=== PATIENT | female | born 1950 | race Caucasian/White ===

== ENCOUNTER → 2017-09-29 | Day surgery (SDC) | payer MEDICARE ==
--- NOTE | 2017-09-29 15:25 | USB ---
EXAMINATION TYPE: US breast needle core LT DATE OF EXAM: 09/29/2017 COMPARISON: NONE CLINICAL HISTORY: R92.8 ABNORMAL JASWINDER. HISTORY: New palpable abnormality at the far lateral left breast at 2:00 with history of breast cancer at age 55. No history of trauma. TECHNIQUE: Informed consent was obtained. Preprocedural timeout was performed. Maximal barrier technique was utilized. The skin overlying a suitable path to the patient's 6 x 6 x 5 mm solid mass at the 2:00 position was localized with ultrasound and the overlying skin prepped and draped. Ultrasound was utilized with sterile technique. 10 cc of lidocaine was used for local anesthesia. A skin cara was made with a scalpel. An 18-gauge Bard biopsy device was advanced under direct ultrasound guidance and 8 core specimens were obtained of the mass. Specimen submitted to Pathology. A coil-shaped biopsy marker was then placed in the mass. No postprocedure mammogram was performed as the abnormality was far lateral and not imaged mammographically. Following the procedure, hemostasis achieved and the patient is discharged in stable condition without complication. IMPRESSION: STATUS POST ULTRASOUND GUIDED CORE BIOPSY OF A PALPABLE FAR LATERAL 6 MM SOLID MASS AT THE 2:00 POSITION MASS PATHOLOGY IS PENDING. THIS PROCEDURE IS PERFORMED BY THE UNDERSIGNED. Pathology Results: Benign BREAST, LEFT, CORE BIOPSY: FAT NECROSIS WITH FIBROSIS/SCAR AND CHRONIC INFLAMMATION. NEGATIVE FOR MALIGNANCY. SEE NOTE. Recommendation Follow up ultrasound of the left breast in 6 months. ELPIDIOD
== END ==
LOC: RADUSWWP 12:25
PROVIDERS: ATTEND Surgery
DX: N64.1 Fat necrosis of breast (principal); N60.32 Fibrosclerosis of left breast; Z85.3 Personal history of malignant neoplasm of breast; R92.8 Other abnormal and inconclusive findings on diagnostic imaging of breast; N61.0 Mastitis without abscess; Z88.1 Allergy status to other antibiotic agents; Z88.3 Allergy status to other anti-infective agents
CPT/HCPCS: 88305; 88342; 88341; 19083; A4648

== ENCOUNTER → 2017-09-29 | Outpatient (CLI) | payer MEDICARE ==
[2017-09-29 12:29] VITALS: RESP 16; BMI 24.0
[2017-09-29 14:01] VITALS: BP 116/79; PULSE 80; TEMP 98.5
--- NOTE | 2017-09-29 14:31 | MM ---
Reason for exam: additional evaluation requested from prior study. Last mammogram was performed 1 year ago. History: Patient is postmenopausal, has history of breast cancer at age 55, and history of other cancer. Family history of breast cancer in paternal grandmother and breast cancer in 2 paternal aunts. Reductions of both breasts, 2009. Malignant US right guided mammotome of the right breast, December 11, 2005. Cancelled Left US Needle Biopsy of the left breast, December 11, 2005. Lumpectomy of the right breast, 2005. Chemotherapy, 2005. Radiation therapy, 2005. Took hormonal contraceptives for 10 years beginning at age 18. Took estrogen for 2 years beginning at age 32. Took antineoplastic for 5 years beginning at age 55. Physical Findings: Nurse Summary: There is a 0.5cm nodule in the left breast at 2 o'clock (nurse mj). MG 3D Diag Mammo W/Cad DANNIELLE XCCL view(s) were taken of the right breast. Spot compression CC view(s) were taken of the left breast. Prior study comparison: April 16, 2016, bilateral US breast BILAT. September 25, 2015, bilateral MG 3d diag mammo w/cad DANNIELLE. The breast tissue is heterogeneously dense. This may lower the sensitivity of mammography. Medial asymmetry resolves on spot compression view and appears as fibroglandular tissue. Asymmetry at site of palpable BB marker axillary on superior inferior oblique view only. These results were verbally communicated with the patient and result sheet given to the patient on 09/29/17. ASSESSMENT: Incomplete: need additional imaging evaluation, BI-RAD 0 RECOMMENDATION: Ultrasound of the left breast. (at palpable abnormality)
--- NOTE | 2017-09-29 14:37 | USB ---
Reason for exam: additional evaluation requested from abnormal screening. History: Patient is postmenopausal, has history of breast cancer at age 55, and history of other cancer. Family history of breast cancer in paternal grandmother and breast cancer in 2 paternal aunts. Reductions of both breasts, 2009. Malignant US right guided mammotome of the right breast, December 11, 2005. Cancelled Left US Needle Biopsy of the left breast, December 11, 2005. Lumpectomy of the right breast, 2005. Chemotherapy, 2005. Radiation therapy, 2005. Took hormonal contraceptives for 10 years beginning at age 18. Took estrogen for 2 years beginning at age 32. Took antineoplastic for 5 years beginning at age 55. US Breast Limited LT Left breast ultrasound demonstrates a 6 x 6 x5mm solid lesion at 2 o'clock mildly hypoechoic with some internal vascularity. These results were verbally communicated with the patient and result sheet given to the patient on 09/29/17. ASSESSMENT: Suspicious, BI-RAD 4 RECOMMENDATION: Ultrasound core biopsy of the left breast. Called Dr. Crawley with mammographic findings and has scheduled an appointment for the patient for10/04/17 at 3:[address] Galdamez. PRELIMINARY REPORT CALLED AND FAXED TO DR. GALDAMEZ ON 09/29/17.
== END | disposition home or self-care (01) ==
LOC: RADMAMWWP 10:21
PROVIDERS: ATTEND Internal Medicine
DX: R92.8 Other abnormal and inconclusive findings on diagnostic imaging of breast (principal); C50.819 Malignant neoplasm of overlapping sites of unspecified female breast
CPT/HCPCS: 76642; G0204; G0279; J2001

== ENCOUNTER → 2018-06-03 | Outpatient (CLI) | payer MEDICARE ==
--- NOTE | 2018-06-03 11:16 | ECHOS ---
STRESS ECHOCARDIOGRAM DATE OF SERVICE: 06/03/2018 INDICATIONS: Abnormal EKG. MEDICATIONS: BASELINE HEART RATE: 70 BASELINE BLOOD PRESSURE: 112/76 MAXIMUM HEART RATE: 137 MAXIMUM BLOOD PRESSURE: 179/74 85% MPHR: 128 100% MPHR: 150 METS: 10 MAXIMUM STAGE REACHED: III TOTAL EXERCISE TIME: 9 minutes CLINICAL INFORMATION: Baseline EKG shows sinus rhythm, normal axis, normal intervals. Patient exercised on Mendez protocol for a total of 9 minutes achieving 10 METs, 91% of predicted maximal heart rate without chest pain or diagnostic ST-segment depression. Baseline echo shows normal left ventricular size, wall motion and systolic function. Postexercise, there is normal hyperdynamic response of all segments of myocardium noted. CONCLUSIONS: 1. Good exercise tolerance. 2. Negative stress test by EKG criteria. 3. Negative stress echo. MMODL / IJN: [id number] /
== END | disposition home or self-care (01) ==
LOC: RADNMMAIN 09:37
PROVIDERS: ATTEND Internal Medicine
DX: R94.31 Abnormal electrocardiogram [ECG] [EKG] (principal)
CPT/HCPCS: 93351

== ENCOUNTER → 2018-06-30 | Outpatient (CLI) | payer MEDICARE ==
--- NOTE | 2018-07-01 10:52 | BD ---
EXAMINATION TYPE: Axial Bone Density DATE OF EXAM: 06/30/2018 COMPARISON: NONE CLINICAL HISTORY: Height: 5 FT 2 1/2 IN Weight: 144 FRAX RISK QUESTIONS: RISK FACTORS HISTORY OF: Active: YES Postmenopausal woman: AGE 51 PT HAD LUMBAR SURG 3 YEARS AGO MEDICATIONS: Additional Medications: LISINOPRIL, HYDROCHLOROTHIAZIDE, ATORVASTATIN Additional History: EXAM MEASUREMENTS: Bone mineral densitometry was performed using the [employer] System. Bone mineral density as measured about the Lumbar spine is: ----- L1-L4(G/cm2): 1.490 T Score Values are as follows: ----- L2: 1.5 ----- L3: 4.2 ----- L4: 3.1 ----- L1-L4: 2.6 DIS REGUARD LUMBAR IMAGES PT HAD PREV SURG DONE IN ERROR Bone mineral density about the R hip (g/cm2): 1.001 Bone mineral density about the L hip (g/cm2): 0.987 T Score values are as follows: -----R Neck: -0.3 -----L Neck: -0.4 -----R Total: -0.3 -----L Total: 0.1 Bone mineral density has: INCREASED 2.9 % since study of: 2016 Bone mineral density about the R Wrist (g/cm2): 0.617 T Score values are as follows: -----Dist. R+U: -1.1 -----Prox. R+U: -0.8 -----Radius total: -0.9 FIRST TIME FOR WRIST BECAUSE OF LUMBAR SURG IMPRESSION: Osteopenia about the distal radius and ulna. NOTE: T-SCORE=SD OF THE YOUNG ADULT MEAN.
== END | disposition home or self-care (01) ==
LOC: RADBDWWP 14:35
PROVIDERS: ATTEND Internal Medicine
DX: M81.0 Age-related osteoporosis without current pathological fracture (principal); M85.839 Other specified disorders of bone density and structure, unspecified forearm
CPT/HCPCS: 77080

== ENCOUNTER → 2018-08-30 | Outpatient (CLI) | payer MEDICARE ==
--- NOTE | 2018-08-31 08:59 | MM ---
Reason for exam: additional evaluation requested from prior study. Last mammogram was performed 11 months ago. History: Patient is postmenopausal, has history of breast cancer at age 55, and history of other cancer. Family history of breast cancer in paternal grandmother and breast cancer in 2 paternal aunts. Benign US breast needle core LT of the left breast, September 29, 2017. Reductions of both breasts, 2009. Malignant US right guided mammotome of the right breast, December 11, 2005. Cancelled Left US Needle Biopsy of the left breast, December 11, 2005. Lumpectomy of the right breast, 2005. Chemotherapy, 2005. Radiation therapy, 2005. Took hormonal contraceptives for 10 years beginning at age 18. Took estrogen for 2 years beginning at age 32. Took antineoplastic for 5 years beginning at age 55. Physical Findings: Nurse did not find any significant physical abnormalities on exam. MG 3D Diag Mammo W/Cad DANNIELLE Bilateral CC and MLO view(s) were taken. Prior study comparison: September 29, 2017, bilateral MG 3d diag mammo w/cad DANNIELLE. September 28, 2016, bilateral MG 3d diag mammo w/cad DANNIELLE. The breast tissue is heterogeneously dense. This may lower the sensitivity of mammography. Benign appearing bilateral calcifications. Post therapy change on the right breast. These results were verbally communicated with the patient and result sheet given to the patient on 08/30/18. ASSESSMENT: Benign, BI-RAD 2 RECOMMENDATION: Routine screening mammogram of both breasts in 1 year.
== END | disposition home or self-care (01) ==
LOC: RADMAMWWP 14:47
PROVIDERS: ATTEND Internal Medicine
DX: Z08 Encounter for follow-up examination after completed treatment for malignant neoplasm (principal); Z85.3 Personal history of malignant neoplasm of breast
CPT/HCPCS: 77066; G0279; 77062

== ENCOUNTER → 2019-09-01 | Outpatient (CLI) | payer MEDICARE ==
--- NOTE | 2019-09-01 14:29 | MM ---
Reason for exam: additional evaluation requested from prior study. Last mammogram was performed 1 year ago. History: Patient is postmenopausal, has history of breast cancer at age 55, and history of other cancer. Family history of breast cancer in paternal grandmother and breast cancer in 2 paternal aunts. Benign US breast needle core LT of the left breast, September 29, 2017. Reductions of both breasts, 2009. Malignant US right guided mammotome of the right breast, December 11, 2005. Cancelled Left US Needle Biopsy of the left breast, December 11, 2005. Lumpectomy of the right breast, 2005. Chemotherapy, 2005. Radiation therapy, 2005. Took hormonal contraceptives for 10 years beginning at age 18. Took estrogen for 2 years beginning at age 32. Took antineoplastic for 5 years beginning at age 55. Physical Findings: Nurse did not find any significant physical abnormalities on exam. MG 3D Diag Mammo W/Cad DANNIELLE Bilateral CC and MLO view(s) were taken. Prior study comparison: August 30, 2018, bilateral MG 3d diag mammo w/cad DANNIELLE. September 29, 2017, bilateral MG 3d diag mammo w/cad DANNIELLE. The breast tissue is heterogeneously dense. This may lower the sensitivity of mammography. Finding #1: Architectural distortion in the upper quadrant, posterior position of the right breast consistent with known excisional changes. Finding #2: There are typically benign round calcifications in both breasts. There is no discrete abnormality. These results were verbally communicated with the patient and result sheet given to the patient on 09/01/19. ASSESSMENT: Benign, BI-RAD 2 RECOMMENDATION: Follow-up diagnostic mammogram of both breasts in 1 year.
== END | disposition home or self-care (01) ==
LOC: RADMAMWWP 13:11
PROVIDERS: ATTEND Internal Medicine
DX: C50.819 Malignant neoplasm of overlapping sites of unspecified female breast (principal); R92.8 Other abnormal and inconclusive findings on diagnostic imaging of breast
CPT/HCPCS: 77066; G0279; 77062

== ENCOUNTER → 2020-08-07 | Outpatient (CLI) | payer MEDICARE ==
--- NOTE | 2020-08-08 08:13 | MM ---
Reason for exam: additional evaluation requested from prior study. Last mammogram was performed 11 months ago. History: Patient is postmenopausal, has history of breast cancer at age 55, and history of other cancer. Family history of breast cancer in paternal grandmother and breast cancer in 2 paternal aunts. Benign US breast needle core LT of the left breast, September 29, 2017. Reductions of both breasts, 2009. Malignant US right guided mammotome of the right breast, December 11, 2005. Cancelled Left US Needle Biopsy of the left breast, December 11, 2005. Lumpectomy of the right breast, 2005. Chemotherapy, 2005. Radiation therapy, 2005. Took hormonal contraceptives for 10 years beginning at age 18. Took estrogen beginning at age 32. Took antineoplastic for 5 years beginning at age 55. Physical Findings: Nurse did not find any significant physical abnormalities on exam. MG 3D Diag Mammo W/Cad DANNIELLE Bilateral CC and MLO view(s) were taken. Prior study comparison: September 01, 2019, bilateral MG 3d diag mammo w/cad DANNIELLE. August 30, 2018, bilateral MG 3d diag mammo w/cad DANNIELLE. The breast tissue is heterogeneously dense. This may lower the sensitivity of mammography. Benign appearing bilateral calcifications. Post surgical changes on right breast. These results were verbally communicated with the patient and result sheet given to the patient on 08/07/20. ASSESSMENT: Benign, BI-RAD 2 RECOMMENDATION: Follow-up diagnostic mammogram of both breasts in 1 year.
== END | disposition home or self-care (01) ==
LOC: RADMAMWWP 14:40
PROVIDERS: ATTEND Internal Medicine
DX: C50.911 Malignant neoplasm of unspecified site of right female breast (principal)
CPT/HCPCS: 77066; G0279; 77062

== ENCOUNTER → 2020-09-27 | Outpatient (CLI) | payer MEDICARE ==
[2020-09-27 09:00] LABS: Basophils % (A) 1 %; Eosinophils # (A) 0.1 k/uL (0-0.7); Eosinophils % (A) 2 %; HCT 40.5 % (34.0-46.0); HGB 13.2 gm/dL (11.4-16.0); Lymphocytes % (A) 22 %; MCH 30.5 pg (25.0-35.0); MCHC 32.5 g/dL (31.0-37.0); MCV 93.6 fL (80.0-100.0); Mean Platelet Volume 8.7; Monocytes # (A) 0.5 k/uL (0-1.0); Monocytes % (A) 10 %; Neutrophils # (A) 2.8 k/uL (1.3-7.7); Neutrophils % (A) 62 %; Platelet Count 257 k/uL (150-450); RBC 4.33 m/uL (3.80-5.40); RDW 12.3 % (11.5-15.5); WBC 4.5 k/uL (3.8-10.6)
[2020-09-27 15:15] LABS: Albumin 4.3 g/dL (3.80-4.90); Albumin/Globulin Ratio 1.72 (1.60-3.17); Anion Gap 10.7 mmol/L (4.00-12.00); BUN/Creat Ratio 15.56 Ratio (12.00-20.00); Calcium 9.2 mg/dL (8.7-10.3); Carbon Dioxide 25.3 mmol/L (21.6-31.8); Globulin 2.5 g/dL (1.6-3.3); Magnesium 1.7 mg/dL (1.5-2.4); Non-African American GFR(CKD) 63.9 (60.0-200.0); Potassium 3.6 mmol/L (3.5-5.5); Total Bilirubin 0.5 mg/dL (0.2-1.2); Total Protein 6.8 g/dL (6.2-8.2)
== END | disposition home or self-care (01) ==
LOC: LABWHC1 07:47
PROVIDERS: ATTEND Internal Medicine
DX: R19.7 Diarrhea, unspecified (principal)
CPT/HCPCS: 36415; 80053; 83690; 83735; 85025; 87045; 87046; 87324; 87328; 87329

== ENCOUNTER → 2021-08-29 | Outpatient (CLI) | payer MEDICARE ==
--- NOTE | 2021-08-29 12:57 | MM ---
Reason for exam: additional evaluation requested from prior study. Last mammogram was performed 1 year and 1 month ago. History: Patient is postmenopausal, has history of breast cancer at age 55, and history of other cancer. Family history of breast cancer in paternal grandmother and breast cancer in 2 paternal aunts. Benign US breast needle core LT of the left breast, September 29, 2017. Reductions of both breasts, 2009. Malignant US right guided mammotome of the right breast, December 11, 2005. Cancelled Left US Needle Biopsy of the left breast, December 11, 2005. Lumpectomy of the right breast, 2005. Chemotherapy, 2005. Radiation therapy, 2005. Took hormonal contraceptives for 10 years beginning at age 18. Took estrogen beginning at age 32. Took antineoplastic for 5 years beginning at age 55. Physical Findings: Nurse did not find any significant physical abnormalities on exam. MG 3D Diag Mammo W/Cad DANNIELLE Bilateral CC and MLO view(s) were taken. XCCL view(s) were taken of the right breast. Prior study comparison: August 07, 2020, bilateral MG 3d diag mammo w/cad DANNIELLE. September 01, 2019, bilateral MG 3d diag mammo w/cad DANNIELLE. The breast tissue is heterogeneously dense. This may lower the sensitivity of mammography. Stable benign calcifications. Stable lumpectomy changes right breast. These results were verbally communicated with the patient and result sheet given to the patient on 08/29/21. ASSESSMENT: Benign, BI-RAD 2 RECOMMENDATION: Follow-up diagnostic mammogram of both breasts in 1 year.
== END | disposition home or self-care (01) ==
LOC: RADMAMWWP 10:52
PROVIDERS: ATTEND Internal Medicine
DX: Z08 Encounter for follow-up examination after completed treatment for malignant neoplasm (principal); Z85.3 Personal history of malignant neoplasm of breast
CPT/HCPCS: 77066; G0279; 77062

== ENCOUNTER → 2022-08-03 | Outpatient (CLI) | payer MEDICARE ==
--- NOTE | 2022-08-03 10:12 | MM ---
Reason for Exam: Additional evaluation requested from prior study. Last screening mammogram was performed 11 month(s) ago. Patient History: Menarche at age 9. First Full-Term at age 17. Hysterectomy at age 32. Postmenopausal. Breast cancer, right, age 55. Other cancer. Estrogen, from age 32 until age 38. Hormonal Contraceptives for 10 years from age 18 until age 28. 2009, Bilateral Reduction. 2005, Lumpectomy on the Right side. 09/29/2017, Benign Core Biopsy on the left side. 12/11/2005, Malignant Core Biopsy on the right side. 2005, Chemotherapy. 2005, Radiation Therapy. 12/11/2005, Cancelled Left US Needle Biopsy on the left side. Paternal grandmother had breast cancer. Paternal aunt had breast cancer. Paternal aunt had breast cancer. Tissue Density: The breast tissue is heterogeneously dense. This may lower the sensitivity of mammography. Findings: Analyzed By CAD. Postsurgical and posttreatment changes right breast. Asymmetric density superior left MLO view is unchanged compared to the 2018 exam. Benign vascular and oil cyst calcifications on both sides. No significant change from prior exams. Overall Assessment: Benign, BI-RAD 2 Management: Screening Mammogram of both breasts in 1 year. 1. Patient should continue monthly self breast exams. 2. A clinical breast exam by your physician is recommended on an annual basis. 3. This exam should not preclude additional follow-up of suspicious palpable abnormalities. Electronically signed and approved by: Kristan Dalton M.D. Radiologist
== END | disposition home or self-care (01) ==
LOC: RADMAMWWP 09:29
PROVIDERS: ATTEND Internal Medicine
DX: Z13.6 Encounter for screening for cardiovascular disorders (principal); C50.911 Malignant neoplasm of unspecified site of right female breast; I65.23 Occlusion and stenosis of bilateral carotid arteries
CPT/HCPCS: 77066; G0279; 77062

== ENCOUNTER → 2023-04-08 | Outpatient (CLI) | payer MEDICARE ==
--- NOTE | 2023-04-08 11:48 | BD ---
EXAMINATION TYPE: Axial Bone Density DATE OF EXAM: 04/08/2023 CLINICAL HISTORY: 72 years old Female. ICD-10 CODE: M81.0 AGE RELATED OSTEOPOROSIS Height: 62 Weight: 143 FRAX RISK QUESTIONS: Family History (Parent hip fracture): yes RISK FACTORS HISTORY OF: Surgery to Spine yes, lumbar fusion to spine. Family History of Osteoporosis: yes, with hip involvement. Postmenopausal woman: yes, at 51 yrs old Hyperparathyroidism: no Adrenal Insufficiency: no MEDICATIONS: Additional Medications: hx of chemo and radiation for breast cancer 2005, bp meds, vit d and calcium, statin for cholesterol, Additional History: TKR, right knee, hx of right breast cancer, 2005, hx of tomoxifen in the past for the breast cancer, hypertension, cholesterol, arthritis, spinal fusion. EXAM MEASUREMENTS: Bone mineral densitometry was performed using the [employer] System. spinal fusion....spine not scanned. Bone mineral density about the R hip (g/cm2): 0.976 Bone mineral density about the L hip (g/cm2): 1.046 T Score values are as follows: -----R Neck: -0.2 -----L Neck: -0.2 -----R Total: -0.2 -----L Total: 0.3 Z Score values are as follows: -----R Neck: 1.7 -----L Neck: 1.7 -----R Total: 1.5 -----L Total: 2.0 Bone mineral density has: Increased 2.0% since study of: 06.30.2018 Bone mineral density about the R Wrist (g/cm2): 0.578 T Score values are as follows: -----Dist. R+U: -0.3 -----Prox. R+U: -1.0 -----Radius total: -1.2 Z Score values are as follows: -----Dist. R+U: 2.0 -----Prox. R+U: 1.2 -----Radius total: 1.0 Bone mineral density has: Decreased -2.5% since study of: 06.30.2018 FRAX%s: The graph provided illustrates a 11.3% chance for a major osteoporotic fx and a 3.3% chance f or the hips probability for fx in 10 years time. IMPRESSION: Borderline osteopenia of the proximal right wrist. Osteopenia (T Score between -2.5 and -1). There is slightly increased risk of fracture and the patient may be considered for treatment. Re-Screen 2-5 years. NOTE: T-SCORE=SD OF THE YOUNG ADULT MEAN.
== END | disposition home or self-care (01) ==
LOC: RADBDWWP 10:06
PROVIDERS: ATTEND Internal Medicine
DX: M81.0 Age-related osteoporosis without current pathological fracture (principal); M85.841 Other specified disorders of bone density and structure, right hand; Z78.0 Asymptomatic menopausal state
CPT/HCPCS: 77080

== ENCOUNTER 2023-07-20 12:53 | Day surgery (SDC) | payer MEDICARE ==
[2023-07-20] MEDS ORDERED: LACTATED RINGERS 1,000 ML IV ONE (13:21)
[2023-07-20] MEDS ORDERED: LACTATED RINGERS 1,000 ML IV SCH (13:22)
[2023-07-20 13:28] VITALS: TEMP 97
[2023-07-20] MEDS ORDERED: PROPOFOL 10 MG/ML 20 ML VIAL IV ONE (14:09)
--- NOTE | 2023-07-20 14:13 | P.GSHP ---
History of Present Illness H&P Date: 07/20/23 Chief Complaint: Colon cancer screening 73-year-old female here for colonoscopy. Last colonoscopy 12 years ago. No bowel related complaints. No family history of colon cancer. Approximate 5 years ago patient had pexied procedure performed for rectal prolapse. Past Medical History Past Medical History: Cancer, Hyperlipidemia, Hypertension, Osteoarthritis (OA) Additional Past Medical History / Comment(s): Routine colonoscopy. Right breast cancer 2006 surgery/chemo/radiation, environmental allergies. History of Any Multi-Drug Resistant Organisms: ESBL Date of last positivie culture/infection: 05/16/20 MDRO Source:: ESBL URINE Past Surgical History: Back Surgery, Breast Surgery, Joint Replacement Additional Past Surgical History / Comment(s): Right breast lumpectomy 2005. Breast reduction 2009. right knee replacement 2013, spine surgery 2014 and 2020, colonoscopy Past Anesthesia/Blood Transfusion Reactions: No Reported Reaction Smoking Status: Never smoker - Past Family History Father Family Medical History: Myocardial Infarction ([place]) Additional Family Medical History / Comment(s): at 45yrs of [place] Mother Family Medical History: Hypertension, Osteoarthritis ([place]) Medications and Allergies Home Medications Medication Instructions Recorded Confirmed Type hydroCHLOROthiazide 12.5 mg PO QAM 09/29/17 07/20/23 History lisinopriL 40 mg PO QAM 09/29/17 07/20/23 History Cetirizine HCl [Zyrtec] 5 mg PO QAM 07/15/23 07/20/23 History Ibuprofen [Motrin Ib] 400 mg PO Q6H PRN 07/15/23 07/15/23 History Mirabegron [Myrbetriq] 25 mg PO QAM 07/15/23 07/20/23 History Allergies Allergy/AdvReac Type Severity Reaction Status Date / Time bacitracin Allergy Rash/Hives Verified 07/20/23 13:26 neomycin Allergy Rash/Hives Verified 07/20/23 13:26 [From Neosporin ([id number])] polymyxin B Allergy Rash/Hives Verified 07/20/23 13:26 [From Neosporin ([id number])] Surgical - Exam Vital Signs Temp Pulse Resp BP Pulse Ox 97 F L 83 18 128/75 96 07/20/23 13:25 07/20/23 13:25 07/20/23 13:25 07/20/23 13:25 07/20/23 13:25 Physical exam: General: Well-developed, well-nourished HEENT: Normocephalic, sclerae nonicteric Abdomen: Nontender, nondistended Extremities: No edema Neuro: Alert and oriented Assessment and Plan (1) Colon cancer screening Narrative/Plan: Will proceed with colonoscopy at this time Current Visit: Yes Status: Acute Code(s): Z12.11 - ENCOUNTER FOR SCREENING FOR MALIGNANT NEOPLASM OF COLON SNOMED Code(s): 973635092
--- NOTE | 2023-07-20 14:30 | P.PCN ---
Date of Procedure: 07/20/23 Procedure(s) Performed: PREOPERATIVE DIAGNOSIS: Colon cancer screening POSTOPERATIVE DIAGNOSIS: Diverticulosis PROCEDURE: Colonoscopy ANESTHESIA: MAC SURGEON: Maximino Palmer M.D. SPECIMENS: None ENDOSCOPIC PROCEDURE: The patient was placed on the endoscopy table in the left decubitus position. The Olympus colonoscope was inserted into the anus and passed under direct visualization to the base of the cecum. The appendiceal orifice was visualized. From that point the scope was slowly withdrawn inspe cting all surfaces carefully. There were no neoplastic inflammatory or polypoid lesions throughout the cecum, ascending, transverse, descending, sigmoid and rectum. There was scattered diverticulosis noted throughout the colon. Digital rectal examination was normal. The patient was taken to the recovery room in stable condition per anesthesia guidelines. RECOMMENDATIONS: Resume diet. Follow-up colonoscopy in 10 years.
[2023-07-20 14:50] VITALS: BP 106/56; PULSE 72; RESP 17
== END 2023-07-20 15:04 | disposition home or self-care (01) ==
LOC: ORWHC2ENDO 12:53
PROVIDERS: ATTEND Surgery
DX: Z12.11 Encounter for screening for malignant neoplasm of colon (principal); K57.30 Diverticulosis of large intestine without perforation or abscess without bleeding; E78.5 Hyperlipidemia, unspecified; I10 Essential (primary) hypertension; M19.90 Unspecified osteoarthritis, unspecified site; Z88.1 Allergy status to other antibiotic agents; Z79.899 Other long term (current) drug therapy; Z85.3 Personal history of malignant neoplasm of breast; Z88.8 Allergy status to other drugs, medicaments and biological substances
CPT/HCPCS: J2704; G0121; 45378

== ENCOUNTER → 2024-04-25 | Outpatient (CLI) | payer MEDICARE ==
--- NOTE | 2024-04-26 11:21 | CA ---
Transthoracic Echo Report Name: Alaina Vieira Age: 73 Gender: F : 1950 Exam Date: 04/25/2024 16:22 Exam Location: [facility] Ht (in): 64 Wt (lb): 140 Ordering Physician: Shelbie Crawley MD Attending/Referring Phys: Shelbie Crawley MD Pool Table Mechanic Lexis Calderón RDCS Procedure CPT: Indications: I25.10 coronary arteriosclerosis Cardiac Hx: Technical Quality: Good Contrast 1: Total Dose (mL): Contrast 2: Total Dose (mL): MEASUREMENTS (Male / Female) Normal Values 2D ECHO LV Diastolic Diameter PLAX 3.2 cm 4.2 - 5.9 / 3.9 - 5.3 cm LV Systolic Diameter PLAX 2.3 cm IVS Diastolic Thickness 1.1 cm 0.6 - 1.0 / 0.6 - 0.9 cm LVPW Diastolic Thickness 1.0 cm 0.6 - 1.0 / 0.6 - 0.9 cm LV Relative Wall Thickness 0.6 RV Internal Dim ED PLAX 3.1 cm LA Systolic Diameter LX 3.2 cm 3.0 - 4.0 / 2.7 - 3.8 cm LV Diastolic Volume MOD 4C 72.5 cm??? LV Systolic Volume MOD 4C 30.0 cm??? LV Ejection Fraction MOD 4C 58.7 % LV Cardiac Index MOD 4C 1699.8 cm???/min???m??? LV Diastolic Length 4C 8.3 cm LV Systolic Length 4C 6.8 cm LV Diastolic Volume MOD 2C 59.5 cm??? LV Systolic Volume MOD 2C 15.9 cm??? LV Ejection Fraction MOD 2C 73.3 % LV Cardiac Index MOD 2C 1742.1 cm???/min???m??? LV Diastolic Length 2C 7.6 cm LV Systolic Length 2C 6.2 cm LA Volume 34.4 cm??? 18 - 58 / 22 - 52 cm??? LA Volume Index 20.2 cm???/m??? 16 - 28 cm???/m??? M-MODE Aortic Root Diameter MM 2.3 cm AV Cusp Separation MM 1.5 cm DOPPLER AV Peak Velocity 145.6 cm/s AV Peak Gradient 8.5 mmHg MV Area PHT 3.0 cm??? Mitral E Point Velocity 65.3 cm/s Mitral A Point Velocity 84.7 cm/s Mitral E to A Ratio 0.8 MV Deceleration Time 250.0 ms TR Peak Velocity 207.5 cm/s TR Peak Gradient 17.2 mmHg Right Ventricular Systolic Press 22.0 mmHg FINDINGS Left Ventricle Left ventricular ejection fraction is estimated at 55-60 %. Mildly increased septal wall thickness. Small left ventricular cavity. Right Ventricle Normal right ventricular size and function. Right ventricular systolic pressure within normal limits. Right Atrium Normal right atrial size. No right atrial thrombus or mass seen. Left Atrium Normal left atrial size. No left atrial thrombus or mass present. Mitral Valve Mitral valve thickened. No mitral stenosis, regurgitation or prolapse. Aortic Valve Trileaflet aortic valve. No aortic valve stenosis or regurgitation. Thickened aortic valve without stenosis. Tricuspid Valve Structurally normal tricuspid valve. Mild tricuspid regurgitation. Pulmonic Valve Structurally normal pulmonic valve. Trace pulmonic regurgitation. Pericardium No pericardial or pleural effusion. Aorta Normal size aortic root and proximal ascending aorta. CONCLUSIONS Normal biventricular dimension and systolic function Previewed by: Dr. Stepan Yates MD (Electronically Signed) Final Date: 26 April 2024 11:20
== END | disposition home or self-care (01) ==
LOC: RADECHMAIN 16:10
PROVIDERS: ATTEND Internal Medicine
DX: I25.10 Atherosclerotic heart disease of native coronary artery without angina pectoris (principal)
CPT/HCPCS: 93306

== ENCOUNTER → 2024-04-25 | Outpatient (CLI) | payer MEDICARE ==
--- NOTE | 2024-04-26 10:32 | US ---
EXAMINATION TYPE: US carotid duplex BILAT DATE OF EXAM: 04/25/2024 COMPARISON: 05/21/2016 CLINICAL INDICATION: Female, 73 years old with history of I65.23 CAROTID STENOSIS; Abnormal cardiac s core; HTN TECHNIQUE: Carotid duplex ultrasound examination. Indirect Doppler criteria was utilized. FINDINGS: EXAM MEASUREMENTS: RIGHT: Peak Systolic Velocity (PSV) cm/sec ----- Right CCA: 61 ----- Right ICA: 75 ----- Right ECA: 64 ICA/CCA ratio: 1.2 RIGHT: End Diastole cm/sec ----- Right CCA: 18 ----- Right ICA: 31 ----- Right ECA: 10 LEFT: Peak Systolic Velocity (PSV) cm/sec ----- Left CCA: 65 ----- Left ICA: 76 ----- Left ECA: 60 ICA/CCA ratio: 1.2 LEFT: End Diastole cm/sec ----- Left CCA: 21 ----- Left ICA: 35 ----- Left ECA: 9 VERTEBRALS (direction of flow): Right Vertebral: Antegrade Left Vertebral: Antegrade Rhythm: Normal REGISTRATION REP NOTES: No intimal thickening, calcified plaque, or elevated velocities seen. IMPRESSION: 1. No flow-limiting stenosis based on velocities. Criteria for Assigning % of Stenosis / Diameter reduction (Estimation based on the indirect measurements of the internal carotid artery velocities (ICA PSV). 1. Normal (no stenosis)=ICA PSV < 125 cm/s: ratio < 2.0: ICA EDV<40 cm/s. 2. Less than 50% stenosis=ICA PSV < 125 cm/s: ratio < 2.0: ICA EDV<40 cm/s. 3. 50 to 69% stenosis=ICA PSV of 125 to 230 cm/s: ration 2.0 ? 4.0: ICA EDV 40-100 cm/s. 4. Greater than 70% stenosis to near occlusion= ICA PSV > 230 cm/s: ratio > 4.0: ICA EDV > 100 cm/s. 5. Near occlusion= ICA PSV velocities may be low or undetectable: variable ratio and ICA EDV. 6. Total occlusion=unable to detect flow.
== END | disposition home or self-care (01) ==
LOC: RADUSWWP 15:20
PROVIDERS: ATTEND Internal Medicine
DX: I65.23 Occlusion and stenosis of bilateral carotid arteries (principal); I10 Essential (primary) hypertension; R93.1 Abnormal findings on diagnostic imaging of heart and coronary circulation
CPT/HCPCS: 93880

== ENCOUNTER → 2024-08-03 | Outpatient (CLI) | payer MEDICARE ==
--- NOTE | 2024-08-07 08:39 | MM ---
Reason for Exam: Screening (asymptomatic). Last screening mammogram was performed 12 month(s) ago. Patient History: Menarche at age 9. First Full-Term at age 17. Hysterectomy at age 32. Postmenopausal. Patient has history of breast feeding. Breast cancer, right, age 55. Other cancer. Previous chest radiation therapy at age 55. Previous chemotherapy at age 55. Estrogen, from age 32 until age 38. Hormonal Contraceptives for 10 years from age 18 until age 28. 2009, Bilateral Reduction. 2005, Lumpectomy on the Right side. 09/29/2017, Benign Core Biopsy on the left side. 12/11/2005, Malignant Core Biopsy on the right side. 2005, Chemotherapy. 2005, Radiation Therapy. 12/11/2005, Cancelled Left US Needle Biopsy on the left side. Paternal grandmother had breast cancer. Paternal aunt had breast cancer. Paternal aunt had breast cancer. Prior Study Comparison: 09/28/2016 Bilateral Diagnostic Mammogram, [facility]. 09/29/2017 Bilateral Diagnostic Mammogram, [facility]. 08/30/2018 Bilateral Diagnostic Mammogram, [facility]. 09/01/2019 Bilateral Diagnostic Mammogram, [facility]. 08/07/2020 Bilateral Diagnostic Mammogram, [facility]. 08/29/2021 Bilateral Diagnostic Mammogram, [facility]. 08/03/2022 Bilateral MG 3D diag mammo w/cad DANNIELLE, [facility]. 08/04/2023 Bilateral MG 3D screening mammo w/cad, [facility]. Tissue Density: The breasts are extremely dense, which lowers the sensitivity of mammography. Findings: Analyzed By CAD. There is no suspicious group of microcalcifications or new suspicious mass in either breast. Overall Assessment: Benign, BI-RAD 2 Management: Screening Mammogram of both breasts in 1 year. . Patient should continue monthly self-breast exams. A clinical breast exam by your physician is recommended on an annual basis. This exam should not preclude additional follow-up of suspicious palpable abnormalities. Note on Nancy scores and lifetime risk: 1. A Nancy score greater than 3% is considered moderate risk. If this is the case, consider specialist referral to assess eligibility for a risk reducing agent. 2. If overall lifetime risk for the development of breast cancer is 20% or higher, the patient may qualify for future screening with alternating mammogram and breast MRI. [facility], , 08/07/2024 8:36 AM. Electronically signed and approved by: Mike Wahl M.D. Radiologis
== END | disposition home or self-care (01) ==
LOC: RADMAMWWP 09:52
PROVIDERS: ATTEND Internal Medicine
DX: Z12.31 Encounter for screening mammogram for malignant neoplasm of breast
CPT/HCPCS: 77063; 77067

== ENCOUNTER → 2024-09-18 | Outpatient (CLI) | payer MEDICARE ==
--- NOTE | 2024-09-18 12:10 | CA ---
Exercise Nuclear Stress Test Report Name: Alaina Vieira Exam Date: 09/18/2024 09:49 Exam Location: [place] [facility] Ht (in): 64 Wt (lb): 140 BSA: 1.68 Ordering Phys: Shelbie Crawley MD Referring Phys: Shelbie Crawley MD Technologist: Sukumar Nicolas Age: 74 Gender: F : 1950 Procedure CPT: Indications: I25.10 coronary arteriosclerosis ICD-10 Codes: Patient History: Medications: LISINOPRIL, HYDROCHLOROTHIAZIDE, ATORVASTATIN Meds past 24 hrs: Pretest Chest Pain: STRESS TEST Mendez Protocol Exercise Duration (min:sec): 07:[address] Depressions (mm): Angina Score: Simpson Score: Resting HR (bpm): 87 Peak HR (bpm): 131 Resting BP (mmHg): 139 / 90 Peak BP (mmHg): 191 / 93 MPHR: 144 Target HR: 122 % MPHR: 91 METS: 9.8 Total Dose: Peak Dose: Atropine: Double Product: 19127 BP Response: Stress Termination: TARGET HR REACHED/MAX EXERTION Stress Symptoms: NO SYMPTOMS Stress Summary: ECG ANALYSIS Resting ECG: Stress ECG: CONCLUSIONS Good exercise tolerance Normal electrocardiogram stress test Dr. Stepan Yates MD (Electronically Signed) Final Date: 18 September 2024 12:09
== END | disposition home or self-care (01) ==
LOC: RADNMMAIN 07:51
PROVIDERS: ATTEND Internal Medicine
DX: I25.10 Atherosclerotic heart disease of native coronary artery without angina pectoris (principal)
CPT/HCPCS: 93017; 78452; A9500